=== PATIENT | female | born 1975 | race African-American/Black ===

== ENCOUNTER 2016-09-07 18:20 | Emergency (ER) | payer OTHER ==
[~2016-09-07] VITALS: Ht 165.1 cm; Wt 133.8 kg
--- NOTE | ~2016-09-07 | EKG ---
[address] [address] ELECTROCARDIOGRAM REPORT Name: MINISTERIO CAMARENA Room #: DEP [facility]#: [id number] Admission: 09/07/16 Attend Phys: Discharge: 09/08/16 Date of : 77 Report #: [id number] THIS REPORT FOR: //name// [facility] ED Test Date: 2016-09-07 Test Time: 18:26:20 Pat Name: MINISTERIO CAMARENA Department: Room: Gender: F [employer] Administration Manager: [place] : 1975 Requested By: Aramis Robertson Order Number: [id number] MD: Julio César Liu Measurements Intervals [place] Rate: 128 P: 63 CT: 136 QRS: -6 QRSD: 95 T: 84 QT: 312 QTc: 456 Interpretive Statements Sinus tachycardia Probable left atrial enlargement Abnormal R-wave progression, late transition Left ventricular hypertrophy No previous ECG available for comparison Electronically Signed On 09-09-2016 16:00:26 CDT by Julio César Liu [email or web address] <ELECTRONICALLY SIGNED> By: Julio César Liu MD 09/09/16 1600 182 25 Julio César Liu MD /[id number]
[2016-09-07] MEDS ORDERED: LISINOPRIL-HCT1 EAC2 PO (18:48)
[2016-09-07] MEDS ORDERED: NIFEDIPINE ER30 M1 (18:49)
[2016-09-07] MEDS ORDERED: ADVAIR 100-501 EACH INH (18:49)
[2016-09-07] MEDS ORDERED: VENTOLIN HFA 1818 GM INH (18:50)
[2016-09-07] MEDS ORDERED: IBUPROFEN 800800 M1 PO (18:50)
[2016-09-07 19:09] LABS: ABSOLUTE NEUTROPHILS 5.2 thou/uL (1.4-8.2); BASOPHILS 1.1 % (0.0-2.0); EOSINOPHILS 3.2 % (0.0-3.0); LYMPHOCYTES 32.4 % (24.0-44.0); MCH 28.1 pg (26.0-34.0); MCV 80.4 fL (80.0-100.0); MONOCYTES 4.2 % (1.0-8.0); PLATELET COUNT 283 thou/uL (150-400); POLYS 59.1 % (36.0-66.0); RBC 4.98 mil/uL (4.20-5.00); RDW 14.9 % (10.5-14.5); WBC 8.8 thou/uL (4.0-11.0)
[2016-09-07 19:17] LABS: MANUAL DIFF NO
[2016-09-07 19:24] LABS: ANION GAP 12 mmol/L (7-16); BUN 13 mg/dL (7-18); CHLORIDE 99 mmol/L (98-107); CO2 27 mmol/L (21-32); CREATININE 1.2 mg/dL (0.6-1.0); GLUCOSE 185 mg/dL (74-106); SODIUM 138 mmol/L (136-145)
[2016-09-07 19:32] LABS: TROPONIN-I < 0.04 ng/mL (<0.04-0.07)
[2016-09-08] MEDS ORDERED: TORADOL 10 MG T10 MG PO (00:29)
[2016-09-08 02:11] VITALS: BP 173/115
== END 2016-09-08 02:11 | disposition home or self-care (01) ==
LOC: ER 18:20
PROVIDERS: Emergency Medicine
DX: R51 Headache (principal); R07.9 Chest pain, unspecified; Z90.49 Acquired absence of other specified parts of digestive tract; Z98.890 Other specified postprocedural states; Z87.891 Personal history of nicotine dependence